=== PATIENT | female | born 2000 | race Native Hawaiian/Other Pacific Islander ===

== ENCOUNTER 2020-08-03 18:10 | Emergency (ER) | payer MEDICAID ==
[2020-08-03 18:38] VITALS: BP 140/80
--- NOTE | 2020-08-04 01:00 | Emergency Department Report ---
ED Female HPI - General Chief complaint: Vaginal Bleeding Stated complaint: 7 TO 8 WEEKS BLEEDING Source: patient Mode of arrival: Ambulatory Limitations: No Limitations - History of Present Illness Initial comments: Patient is a A0 20-year-old female with no past medical history and who is approximately 8 weeks gestation who presents to the ED with complaint of acute onset persistent pelvic pain with heavy vaginal bleeding for the last 8 hours. Patient states that the bleeding and the pain have worsened especially in the last 2 hours prior to arrival in the ED. Patient states that she has used several sanitary pads to help but the bleeding has been heavier. Patient denies dizziness, syncope, fever, chills, nausea and vomiting or diarrhea, va ginal discharge, dysuria, chest pain, shortness of breath, change in vision or sore throat. MD Complaint: vaginal bleeding, pelvic pain -: Sudden, hour(s) (8) Location: suprapubic, other (Vaginal) Radiation: non-radiating Severity: moderate Severity scale (0 -10): 6 Quality: cramping, aching Consistency: constant Improves with: none Worsens with: none Are you Now?: Yes (Approximately 8 weeks gestation) Associated Symptoms: denies other symptoms, vaginal bleeding, abdominal pain. denies: vaginal discharge, nausea/vomiting, fever/chills, headaches, loss of appetite, dysuria, hematuria, rash, shortness of breath, syncope, weakness, other - Related Data Sexually active: Yes : 1 Para: 0 A: 0 Previous Rx's Medication Instructions Recorded Last Taken Type Acetaminophen [Tylenol] 500 mg PO Q6HR PRN #30 tablet 08/04/20 Unknown Rx Allergies Allergy/AdvReac Type Severity Reaction Status Date / Time No Known Allergies Allergy Unverified 08/03/20 18:37 ED Review of Systems ROS: Stated complaint: 7 TO 8 WEEKS BLEEDING Other details as noted in HPI Constitutional: denies: chills, fever Eyes: denies: eye pain, eye discharge, vision change ENT: denies: ear pain, throat pain Respiratory: denies: cough, shortness of breath, wheezing Cardiovascular: denies: chest pain, palpitations Endocrine: no symptoms reported Gastrointestinal: abdominal pain (Suprapubic pain). denies: nausea, vomiting, diarrhea, constipation, hematemesis Genitourinary: abnormal menses (Heavy vaginal bleeding). denies: urgency, dysuria, discharge Musculoskeletal: denies: back pain, joint swelling, arthralgia Skin: denies: rash, lesions Neurological: denies: headache, weakness, paresthesias Psychiatric: denies: anxiety, depression Hematological/Lymphatic: denies: easy bleeding, easy bruising ED Past Medical Hx - Past Medical History Previous Medical History?: No - Surgical History Past Surgical History?: No - Medications Home Medications: Home Medications Medication Instructions Recorded Confirmed Last Taken Type Acetaminophen [Tylenol] 500 mg PO Q6HR PRN #30 tablet 08/04/20 Unknown Rx ED Physical Exam - General Limitations: No Limitations General appearance: alert, in no apparent distress - Head Head exam: Present: atraumatic, normocephalic, normal inspection - Eye Eye exam: Present: normal appearance, PERRL, EOMI Pupils: Present: normal accommodation - ENT ENT exam: Present: normal exam, normal orophraynx, mucous membranes moist, TM's normal bilaterally, normal external ear exam - Neck Neck exam: Present: normal inspection, full ROM - Respiratory Respiratory exam: Present: normal lung sounds bilaterally. Absent: respiratory distress, wheezes, rales, rhonchi, chest wall tenderness, accessory muscle use, decreased breath sounds, prolonged expiratory - Cardiovascular Cardiovascular Exam: Present: regular rate, normal rhythm, normal heart sounds. Absent: systolic murmur, diastolic murmur, rubs, gallop - GI/Abdominal GI/Abdominal exam: Present: soft, tenderness (Palpable suprapubic tenderness), normal bowel sounds. Absent: guarding, rebound, hyperactive bowel sounds - Bi-manual exam: Present: other (Pelvic exam deferred, patient declined) - Extremities Exam Extremities exam: Present: normal inspection, full ROM, normal capillary refill - Back Exam Back exam: Present: normal inspection, full ROM. Absent: tenderness, CVA tenderness (R), CVA tenderness (L), muscle spasm, paraspinal tenderness, vertebral tenderness - Neurological Exam Neurological exam: Present: alert, oriented X3, CN II-XII intact, normal gait, reflexes normal - Psychiatric Psychiatric exam: Present: normal affect, normal mood - Skin Skin exam: Present: warm, dry, intact, normal color. Absent: rash ED Course Vital Signs 08/03/20 18:38 Temperature 98 F Pulse Rate 75 Respiratory 18 Rate Blood Pressure 140/80 [Right] O2 Sat by Pulse 100 Oximetry ED Medical Decision Making - Lab Data Result diagrams: 08/04/20 00:49 08/04/20 00:49 - Radiology Data Radiology results: report reviewed, image reviewed Findings [facility] [address] [place] [address] Ultrasound Report Signed Patient: JOHANNE PENG MR#: [id number] : 2000 Acct:[id number] Age/Sex: 20 / F ADM Date: 08/03/20 Loc: ED Attending Dr: Ordering Physician: ROSI TAN Date of Service: 08/04/20 Procedure(s): US OB transvaginal Accession Number(s): [id number] cc: ROSI TAN ULTRASOUND OBSTETRIC INDICATION / CLINICAL INFORMATION: Vaginal bleeding, . Clinical Gestational Age (GA) in weeks, days: Unknown TECHNIQUE: Transabdominal. Transvaginal COMPARISON: None available. FINDINGS: UTERUS: No gestational sac is identified within the uterus. The endometrial stripe is slightly prominent measuring 9 mm. ADNEXA: The right ovary is well-visualized and appears unremarkable. We were unable to identify the left ovary. No adnexal mass identified. FREE FLUID: Trace free fluid is present in the posterior cul-de-sac. ADDITIONAL FINDINGS: None. IMPRESSION: 1. No sonographic evidence of IUP at this time. 2. Nonvisualization of the left ovary. Signer Name: Marni Kwan MD Signed: 08/04/2020 3:47 AM Workstation Name: [id number] Transcribed By: JR Dictated By: Marni Kwan MD Electronically Authenticated By: Marni Kwan MD Signed Date/Time: 08/04/20346 DD/ 3 TD/TT: - Medical Decision Making This is a A0 20-year-old female with no past medical history and who is approximately 8 weeks gestation who presents to the ED with complaint of acute onset persistent pelvic pain with heavy vaginal bleeding for the last 8 hours. Patient states that the bleeding and the pain have worsened especially in the last 2 hours prior to arrival in the ED. Patient states that she has used several sanitary pads to help but the bleeding has been heavier. In the ED, patient is alert and oriented x3 and is not in distress. Patient was treated for pain in the ED and lab test results were reviewed and showed hCG quant of 709.3. The rest of the lab test results were nonactionable. Transvaginal and pelvic ultrasound showed no sonographic evidence of intrauterine . Based on the patient's history and physical exam findings as well as lab test results with a hCG quant of 709.3, patient may have had demise or complete miscarriage. Patient was therefore discharged home and advised to maintain complete pelvic rest and to return to the ED or to her primary [facility] physician in 48 hours for serial hCG quant studies to characterize and determine the viability of the and to confirm the demise. Patient was otherwise advised to take Tylenol as needed for pain and otherwise return to the ED immediately if symptoms get worse. - Differential Diagnosis Threatened miscarriage; subchorionic bleed; UTI; fibroids; ovarian cyst; Critical care attestation.: If time is entered above; I have spent that time in minutes in the direct care of this critically ill patient, excluding procedure time. ED Disposition Clinical Impression: Threatened miscarriage, Vaginal bleeding in patient after first trimester, Abdominal pain during in first trimester, Complete miscarr iage Disposition: DC-01 TO HOME OR SELFCARE Is pt being admited?: No Does the pt Need Aspirin: No Condition: Stable Instructions: Abdominal Pain During , [id number], Threatened Miscarriage, [id number], Vaginal Bleeding During , First Trimester, [id number] Additional Instructions: The lab test results showed hCG quant of 709.3, which is quite low based on the fact that you are 8 weeks gestation by history. The transvaginal ultrasound showed no evidence of intrauterine . Therefore based on these findings, it is likely that you are having a miscarriage or you have had a complete miscarriage. Therefore maintain a complete pelvic rest, follow-up with your [facility] physician or return to the ED within 48 hours for serial hCG quant test to determine the viability of the or a complete miscarriage. R eturn to the ED immediately if symptoms get worse. Prescriptions: Acetaminophen [Tylenol] 500 mg PO Q6HR PRN #30 tablet PRN Reason: Pain , Severe (7-10) Referrals: FAISAL RIVERO MD [Staff Physician] - 3-5 Days Forms: Work/School Release Form(ED) Time of Disposition: 06:12 Print Language: BURKINAN
[2020-08-04 01:19] LABS: Basophils % (Auto) 0.3 % (0.0-1.8); Eosinophils # (Auto) 0.1 K/mm3 (0.0-0.4); Eosinophils % (Auto) 0.9 % (0.0-4.3); Hematocrit 38.9 % (30.3-42.9); Hemoglobin 13.2 gm/dl (10.1-14.3); Lymphocytes # (Auto) 2.7 K/mm3 (1.2-5.4); Lymphocytes % (Auto) 30.9 % (13.4-35.0); Mean Corpuscular HGB Conc 34 % (30-34); Mean Corpuscular Volume 92 fl (79-97); Monocytes # (Auto) 0.6 K/mm3 (0.0-0.8); Monocytes % (Auto) 6.4 % (0.0-7.3); Platelet Count 296 K/mm3 (140-440); Red Blood Count 4.23 M/mm3 (3.65-5.03); Red Cell Distribution Width 13.1 % (13.2-15.2)
[2020-08-04 01:38] LABS: Alanine Aminotransferase 15 units/L (7-56); Albumin 4.6 g/dL (3.9-5); Blood Urea Nitrogen 8 mg/dL (7-17); Calcium 9.7 mg/dL (8.4-10.2); Hemolysis Index 1
[2020-08-04 01:44] LABS: BUN/Creatinine Ratio 16
[2020-08-04 02:24] LABS: Bacteria,Urine 1+ /HPF (Negative); Bilirubin,Urine NEG (Negative); Blood,Urine LG (Negative); Color,Urine Yellow (Yellow); Mucus,Urine 3+ /HPF; Protein,Urine <15 mg/dL mg/dL (Negative); Urobilinogen,Urine < 2.0 mg/dL (<2.0)
--- NOTE | 2020-08-04 03:52 | Ultrasound Report ---
ULTRASOUND OBSTETRIC INDICATION / CLINICAL INFORMATION: Vaginal bleeding, . Clinical Gestational Age (GA) in weeks, days: Unknown TECHNIQUE: Transabdominal. Transvaginal COMPARISON: None available. FINDINGS: UTERUS: No gestational sac is identified within the uterus. The endometrial stripe is slightly promin ent measuring 9 mm. ADNEXA: The right ovary is well-visualized and appears unremarkable. We were unable to identify the l eft ovary. No adnexal mass identified. FREE FLUID: Trace free fluid is present in the posterior cul-de-sac. ADDITIONAL FINDINGS: None. IMPRESSION: 1. No sonographic evidence of IUP at this time. 2. Nonvisualization of the left ovary. Signer Name: Marni Kwan MD Signed: 08/04/2020 3:47 AM Workstation Name: [id number]
== END 2020-08-04 06:23 | disposition home or self-care (01) ==
LOC: ED 18:10
DX: O20.0 Threatened abortion (principal); Z79.899 Other long term (current) drug therapy; Z3A.08 8 weeks gestation of pregnancy
CPT/HCPCS: 36415; 76801; 76817; 80053; 81001; 84702; 84703; 85025; 86850; 86900; 86901